=== PATIENT | female | born 1950 | race Caucasian/White ===

== ENCOUNTER → 2021-06-29 | Outpatient (CLI) | payer MEDICARE ==
[~2021-06-29] MED LIST: ACETAMINOPHEN-1 EAC1 PO; CALCIUM + VITA1 EACH PO; COENZYME Q10100 MG PO; CRESTOR10 MG PO; DIGOXIN125 MCG PO; DILTIAZEM 24HR240 M1 PO; ECOTRIN81 MG PO; ELIQUIS 5 MG TAB5 MG PO; ENTRESTO 24 MG1 EACH PO; LASIX40 MG PO; LEVAQUIN500 MG PO; LOPRESSOR 25 MG25 MG PO; LOPRESSOR 50 MG50 MG PO; LOPRESSOR50 MG PO; NITROSTAT 0.40.4 MG SL; OCUVITE EYE PL1 EACH PO; PLAVIX 75 MG TA75 MG PO; TOVIAZ8 MG PO; VITAMIN D34000 UNIT PO; XALATAN OP SOL2.5 ML OP; ZAROXOLYN/DIUL2.5 MG PO
== END ==
LOC: LAB 08:23
PROVIDERS: Physician Assistant
DX: Z13.9 Encounter for screening, unspecified (principal); I25.5 Ischemic cardiomyopathy; I48.19 Other persistent atrial fibrillation; I11.0 Hypertensive heart disease with heart failure; I50.22 Chronic systolic (congestive) heart failure; I25.10 Atherosclerotic heart disease of native coronary artery without angina pectoris; E78.5 Hyperlipidemia, unspecified
CPT/HCPCS: 36415; 80048

== ENCOUNTER → 2021-07-03 | Day surgery (SDC) | payer MEDICARE ==
[~2021-07-03] MED LIST changes: +LEVOTHYROXINE25 MC1 PO; +MULTAQ 400 MG400 MG PO
[2021-07-03 08:21] LABS: HEMOGLOBIN 12.2 gm/dl (12.3-15.3); RED BLOOD COUNT 3.69 M/UL (4.00-5.10); WHITE BLOOD COUNT 8.2 K/UL (4.5-11.0)
== END | disposition home or self-care (01) ==
LOC: CATH 06:59
PROVIDERS: Internal Medicine Cardiovascular Disease
DX: I48.19 Other persistent atrial fibrillation (principal); I50.22 Chronic systolic (congestive) heart failure; I25.5 Ischemic cardiomyopathy; I35.8 Other nonrheumatic aortic valve disorders; I34.0 Nonrheumatic mitral (valve) insufficiency; Z79.01 Long term (current) use of anticoagulants
CPT/HCPCS: 36415; 80048; 85027; 92960; 93005; 93312; 93320; J1200; J1742; J2250; J2310; J3010; J7040